=== PATIENT | female | born 1980 | race Caucasian/White ===

== ENCOUNTER 2021-05-01 17:06 | Emergency (ER) | payer SELFPAY ==
[2021-05-01 20:27] LABS: BASO # 0.04 K/mm3 (0.02-0.10); EOS # 0.12 K/mm3 (0.04-0.40); EOS % 1.6 % (1.0-5.0); HEMATOCRIT 34.4 % (37.0-47.0); HEMOGLOBIN 10.2 g/dL (12.5-16.0); MEAN CELL VOLUME 76 fl (78-100); MEAN CORPUSCULAR HEMOGLOBIN 23 pg (27-31); MEAN CORPUSCULAR HGB CONC 30 g/dL (33-37); MEAN PLATELET VOLUME 9.5 fl (7.4-10.4); MONO # 0.33 K/mm3 (0.20-0.80); NEU # 4.55 K/mm3 (1.40-6.50); PLATELET COUNT 310 K/mm3 (130-400); RED BLOOD COUNT 4.52 M/mm3 (4.10-5.30); RED CELL DISTRIBUTION WIDTH 17.6 % (11.5-14.5); WHITE BLOOD COUNT 7.4 K/mm3 (4.8-10.8)
[2021-05-01 20:42] LABS: ALBUMIN 3.4 g/dL (3.5-5.0)
[2021-05-01 20:44] LABS: CALCIUM 9.3 mg/dL (8.3-10.5)
[2021-05-01 20:45] LABS: TOTAL PROTEIN 8.2 g/dL (6.4-8.3)
[2021-05-01 20:47] LABS: TOTAL BILIRUBIN 0.3 mg/dL (0.2-1.2)
[2021-05-01 22:12] LABS: URINE APPEARANCE CLOUDY; URINE BILIRUBIN NEGATIVE (NEGATIVE); URINE BLOOD TRACE (NEGATIVE); URINE COLOR YELLOW; URINE GLUCOSE NEGATIVE (NEGATIVE); URINE KETONE NEGATIVE (NEGATIVE); URINE LEUKOCYTE ESTERASE 2+ (NEGATIVE); URINE NITRATE NEGATIVE (NEGATIVE); URINE PROTEIN(semi-quant) TRACE mg/dL (NEGATIVE); URINE UROBILINOGEN NORMAL (NORMAL); URINE WBC >50 /hpf (0-3)
[2021-05-01] MEDS ORDERED: CEPHALEXIN500 M1 PO (22:37)
[2021-05-01] MEDS ORDERED: BACTRIM DS TAB1 EACH PO ×2 (22:37→23:04)
[2021-05-01 22:50] VITALS: BP 132/76
[2021-05-01] MEDS ORDERED: CEPHALEXIN500 M2 PO (23:04)
== END 2021-05-01 22:50 | disposition home or self-care (01) ==
LOC: ED 17:06
PROVIDERS: Nurse Practitioner
DX: R05.9 Cough, unspecified (principal)